=== PATIENT | female | born 1980 | race Caucasian/White ===

== ENCOUNTER 2021-08-13 11:34 | Emergency (ER) | payer OTHER ==
[2021-08-13 14:10] LABS: BUN/CREATININE RATIO 11 (0-10)
[2021-08-13 15:27] LABS: HEMOGLOBIN 12.9 gm/dl (12.3-15.3); RED BLOOD COUNT 3.95 M/UL (4.00-5.10); WHITE BLOOD COUNT 5.3 K/UL (4.5-11.0)
[2021-08-13] MEDS ORDERED: LEVOTHYROXINE25 MC1 PO (16:28)
== END 2021-08-13 17:03 | disposition home or self-care (01) ==
LOC: ER1 11:34
PROVIDERS: Nurse Practitioner
DX: I67.1 Cerebral aneurysm, nonruptured (principal); M54.6 Pain in thoracic spine; R42 Dizziness and giddiness; E03.9 Hypothyroidism, unspecified; D69.6 Thrombocytopenia, unspecified; M89.8X8 Other specified disorders of bone, other site; F17.210 Nicotine dependence, cigarettes, uncomplicated
CPT/HCPCS: 70450; 80053; 81001; 85025; 96374; 96375; 99284; J2270; J2405; J7030